=== PATIENT | male | born 1955 | race Caucasian/White ===

== ENCOUNTER 2018-09-21 17:15 | Outpatient (CLI) | payer BC, OTHER ==
[~2018-09-21] VITALS: Ht 188 cm; Wt 75.0 kg
[2018-09-21] VITALS (9 sets, daily range): BP systolic 106–128; BP diastolic 69–78
[~2018-09-21 17:15] MED LIST: BICA50TA5 PO; HYDR12.5 PO; LISI40TA PO; MEGE20TA PO; MULT-608; TRM50T
[2018-09-21] MEDS ORDERED: NS IV 500 ML 500 ML IV SCH (18:15)
[2018-09-21] MEDS ORDERED: FUROSEMIDE 40 MG/4 ML INJ (LASIX) IV NR (18:15)
[2018-09-22] VITALS: BP 128/76
[2018-09-22 02:00] VITALS: BP 121/80
== END 2018-09-22 02:00 ==
LOC: 4THo 17:15 → 4TH 17:16 → 4THo 09-22 02:00
PROVIDERS: ATTEND Family Medicine
DX: D64.9 Anemia, unspecified (principal)
CPT/HCPCS: 36430; 86850; 86900; 86901; 86920; 96376

== ENCOUNTER → 2020-03-12 | Outpatient (CLI) | payer BC ==
[~2020-03-12] MED LIST changes: -MEGE20TA PO; +MEGE20TA3 PO
== END ==
LOC: LABNPT 09:23
PROVIDERS: ATTEND Orthopaedic Surgery Orthopaedic Trauma
DX: Z11.59 Encounter for screening for other viral diseases (principal)
CPT/HCPCS: 87635